=== PATIENT | male | born 1945 | race Caucasian/White ===

== ENCOUNTER 2017-09-13 12:35 | Emergency (ER) | payer MEDICARE, OTHER ==
[2017-09-13 13:00] LABS: Hematocrit 39.9 % (42.0-52.0); Hemoglobin 13.6 gm/dL (13.5-18.0); Mean Cell Volume 90.1 fl (78-100); Mean Corpuscular Hemoglobin 30.7 pg (27-31); Mean Corpuscular Hgb Conc 34.1 g/dl (32-36); Mean Platelet Volume 10.7 fl (6.0-9.5); Neutrophil # 4.8 K/mm3 (1.3-6.0); Neutrophil % 60.7 % (42-75.0); Platelet Count 216 K/mm3 (150-450); Red Blood Count 4.43 M/mm3 (4.7-6.0); Red Cell Distribution Width 12.5 % (11.5-14.0); White Blood Count 7.8 K/mm3 (4.0-10.5)
--- NOTE | 2017-09-13 13:09 | ERNOTE ---
Dyspnea - Date Date of Service: 09/13/17 - General Presenting Symptoms: shortness of breath Time Seen by Provider: 09/13/17 12:56 Source: patient Exam Limitations: no limitations - Immun/Allergies/Home Medications Immunizations: IMMUNIZATION HX Immunizations Up to Date Yes History of Influenza Vaccine Yes Hx Pneumococcal Vaccination Yes Allergies/Adverse Reactions: Allergies No Known Allergies Allergy (Verified 09/13/17 12:47) Home Medications: HOME MEDICATIONS Aspirin 325 mg PO DAILY 11/04/14 [Last Taken Unknown] Simvastatin [Zocor] 80 mg PO HS 11/04/14 [Last Taken Unknown] Albuterol Sulfate [Ventolin Hfa] 2 puff IH Q4H PRN #1 inhaler 09/13/17 [Last Taken Unknown] - History of Present Illness Narrative: Pt. comes in with c/o SOB when he goes out to check his mail every day for a week. Pt. denies any SOB at any other time of the day and states that the episodes last for about 5 minutes without any alleviating factors noted but it just resolves spontaneously. Pt. denies any cough, edema, fatigue, malaise, or aggravating factors at any other time throughout the day. Pt. 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 Severity: mild Treatment NETWORK ASSOCIATE: none Initiating event: Denies: upper resp illness, aspiration/choking, allergy to food, allergy to environment, allergy to unknown, exposure to smoke, exposure to mold, emotionally upset Frequency of episodes: Reports: no prior episodes Modifying Factors - (Improves): Reports: nothing Modifying Factors (Worsens): Reports: activity Associated Symptoms-Dyspnea: Denies: fever/chills, chest pain/discomfort, cough , wheezing, leg/calf pain, dizziness, lightheadedness, weakness, anxiety, tingling of hands/face, muscle spasms, loss of appetite Prior Treatment: Denies: recently seen, treated by physician, recently hospitalized, currently on antibiotics, previous episodes Review of Systems - Review of Systems Constitutional: Present: no symptoms reported. Absent: fever, chills, weakness , fatigue, malaise EYE: Present: no symptoms reported ENT: Present: no symptoms reported Respiratory: Present: shortness of breath. Absent: cough, wheezing Cardiology: Present: no symptoms reported. Absent: chest pain, palpitations, edema Gastrointestinal/Abdominal: Present: no symptoms reported. Absent: nausea, vomiting, diarrhea Genitourinary: Present: no symptoms reported. Absent: frequency, decreased urinary output Musculoskeletal: Present: no symptoms reported. Absent: back pain, neck pain, joint pain Skin: Present: no symptoms reported. Absent: rash, change in color Neurological: Present: no symptoms reported. Absent: headache, dizziness/light- headedness, weakness, numbness, tingling Endocrine: Present: no symptoms reported Hematologic/Lymphatic: Present: no symptoms reported Psych: Present: no symptoms reported All Other Systems: All systems neg except as marked - Patient's Past Medical History Patient History - Medical: No pertinent hx Patient History - Cardiac/Respiratory: CVA/Stroke, Hyperlipidemia Patient History - Cancer: No Hx of Cancer Patient History - Surgical Procedures: Vasectomy, Other Patient History - Other: None - Social History Living Situations: home Psych History: No pertinent hx Smoking Status: Former smoker Alcohol Use: rarely Drug Use: none - Immunizations Immunizations Up to Date: Yes Hx Pneumococcal Vaccination: Yes History of Influenza Vaccine: Yes Physical Exam - Physical Exam General Appearance: Present: wd/wn, alert, no apparent distress Head Exam: Present: normal inspection, no evidence of injury Eye Exam: Normal inspection: bilateral, PERRL: bilateral, EOMI: bilateral Ears, Nose, Throat: Present: normal ENT inspection, normal pharynx Neck: Present: normal inspection, nontender, supple, full range of motion. Absent: lymphadenopathy (R), lymphadenopathy (L) Respiratory: Present: no respiratory distress, normal breath sounds, no accessory muscle use, chest nontender, lungs clear Cardiovascular/Chest: Present: regular rate, rhythm, no murmur, normal peripheral pulses Gastrointestinal/Abdominal: Present: normal bowel sounds, nontender, nondistended, soft, no organomegaly Back Exam: Present: normal inspection, normal range of motion, no CVA tenderness , no vertebral tenderness Extremity Exam: Present: normal inspection, non-tender, normal range of motion, no edema Neurological Exam: Present: alert, oriented, normal mood/affect, no motor/ sensory deficits, 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 Absent: pallor, skin rash ED Progress - Vital Signs Patient's Vital Signs:: I have reviewed the patient's vital signs. Vital Signs: Vital Signs 09/13/17 09/13/17 12:40 13:02 Temperature 36.7 C Pulse Rate 75 64 Respiratory 15 12 Rate Blood Pressure 138/77 134/60 O2 Sat by Pulse 98 96 Oximetry - EKG EKG: other - Sinus rythm with inferior ST wave abnormality no acute change from previous EKG read: Interp. by me - X-Ray X-Ray #1 X-Ray: chest Interpretation: Reviewed by me X-ray Comments: no consolidation, mild hyperinflation, no pulm edema. - Progress/Reassessment Chief Complaint: Dyspnea Departure Clinical Impression: COPD (chronic obstructive pulmonary disease) Qualifiers: COPD type: emphysema Emphysema type: unspecified Qualified Code(s): J43.9 - Emphysema, unspecified - Departure Disposition: Home self-care Condition: Good Instructions: Chronic Obstructive Pulmonary Disease Exacerbation, [id number] Additional Instructions: Please take albuterol inhaler 2 puffs when you wake up prior to letting dogs out and follow up with your primary provider in 2-3 days if no improvement. Referrals: Kiley Smith MD [Primary Care Provider] - Prescriptions: Albuterol Sulfate [Ventolin Hfa] 2 puff IH Q4H PRN #1 inhaler PRN Reason: Shortness Of Breath
[2017-09-13 13:25] LABS: Urine Bilirubin Negative (NEGATIVE); Urine Blood Negative /ul (NEGATIVE); Urine Ketone Negative (NEGATIVE); Urine Nitrite Negative (NEGATIVE); Urine Protein Negative (NEGATIVE); Urine Urobilinogen Normal (NORMAL); Urine pH 5.5 pH (5.0-7.0)
[2017-09-13 13:25] LABS: Albumin * 3.9 gm/dl (3.4-5.0); Anion Gap 14.5 mmol/L (6.8-13.8); BUN/Creatinine Ratio 19.4 (9.0-21.6); Bilirubin, Total 0.6 mg/dL (0.0-1.1); Calcium * 9.2 mg/dL (7.9-10.9); Carbon Dioxide 24.1 mmol/L (24-32.6); Potassium 4.6 mmol/L (3.4-4.6); Total Protein 7.5 gm/dL (6.2-8.2); Troponin I 0.088 ng/ml (0.00-0.10)
[2017-09-13 13:36] LABS: Urine Appearance Clear; Urine Bacteria None Seen; Urine Color Yellow; Urine RBC None Seen /hpf (0-5); Urine WBC TRACE /hpf (0-5)
[2017-09-13 13:43] VITALS: BP 143/72
== END 2017-09-13 13:55 | disposition home or self-care (01) ==
LOC: ER 12:35
DX: J43.9 Emphysema, unspecified (principal); E78.5 Hyperlipidemia, unspecified; Z86.73 Personal history of transient ischemic attack (TIA), and cerebral infarction without residual deficits

== ENCOUNTER 2017-09-27 11:53 | Emergency (ER) | payer MEDICARE, OTHER ==
[2017-09-27] MEDS ORDERED: ASPIRIN 81 MG TAB.CHEW PO ONE (12:41)
[2017-09-27] MEDS ORDERED: ASPIRIN 81 MG TAB.CHEW ONE (12:49)
--- NOTE | 2017-09-27 12:49 | ERNOTE ---
Medical Problem HPI - Narrative Date of Service: 09/27/17 - General Chief Complaint: Dyspnea Time Seen by Provider: 09/27/17 12:28 Source: patient, family Exam Limitations: no limitations - Immun/Allergies/Home Medications Immunizations: IMMUNIZATION HX Immunizations Up to Date No History of Influenza Vaccine Yes Hx Pneumococcal Vaccination Yes Allergies/Adverse Reactions: Allergies No Known Allergies Allergy (Verified 09/13/17 12:47) Home Medications: HOME MEDICATIONS Aspirin 325 mg PO DAILY 11/04/14 [Last Taken Unknown] Simvastatin [Zocor] 80 mg PO HS 11/04/14 [Last Taken Unknown] Albuterol Sulfate [Ventolin Hfa] 2 puff IH Q4H PRN #1 inhaler 09/13/17 [Last Taken Unknown] - History of Present History Narrative: Pt. comes in with c/o a not right feeling in his chest. Pt. sats that he has some shortness of breath and chest heaviness upon awakening and it resolves around noon every day. Pt. denies any Chest pain, NVD, fever, sore throat, rhinorrhea, abdominal pain, alleviating or aggravating factor. Pt. states that he has been taking his inhaler every morning without relief. Pt. was seen here 2 weeks ago and was found to have COPD and was started on said inhaler for this. Timing: intermittent Severity: moderate Modifying Factors - (Improves): Present: other - denies Modifying Factors - (Worsens): Present: other - denies Review of Systems - Review of Systems Constitutional: Present: no symptoms reported. Absent: fever, chills, weakness , fatigue, malaise EYE: Present: no symptoms reported. Absent: eye pain, double vision, vision changes ENT: Present: no symptoms reported. Absent: ear pain, ear discharge, nose pain , nose congestion, nasal drainage, sore throat, throat swelling Respiratory: Present: shortness of breath - resolved now, cough, orthopnea. Absent: wheezing, stridor Cardiology: Present: no symptoms reported. Absent: chest pain, palpitations, edema Gastrointestinal/Abdominal: Present: no symptoms reported. Absent: nausea, vomiting, diarrhea, abdominal pain Genitourinary: Present: no symptoms reported. Absent: frequency, decreased urinary output Musculoskeletal: Present: no symptoms reported. Absent: back pain, neck pain, joint pain Skin: Present: no symptoms reported. Absent: rash, change in hair/nails Neurological: Present: no symptoms reported. Absent: headache, dizziness/light- headedness, numbness, tingling Endocrine: Present: no symptoms reported Hematologic/Lymphatic: Present: no symptoms reported Psych: Present: no symptoms reported All Other Systems: All systems neg except as marked - Patient's Past Medical History Patient History - Medical: No pertinent hx Patient History - Cardiac/Respiratory: CVA/Stroke, Hyperlipidemia Patient History - Cancer: No Hx of Cancer Patient History - Surgical Procedures: Vasectomy, Other Patient History - Other: None - Social History Living Situations: home Abuse History: No History of abuse Psych History: No pertinent hx Smoking Status: Former smoker Have you smoked in the past 12 months: Yes Do you dip or chew tobacco: No Alcohol Use: none Drug Use: none - Immunizations Immunizations Up to Date: No Hx Pneumococcal Vaccination: Yes History of Influenza Vaccine: Yes Physical Exam - Physical Exam General Appearance: Present: wd/wn, alert, no apparent distress Head Exam: Present: normal inspection, no evidence of injury, no tenderness w palpation Eye Exam: Normal inspection: bilateral Ears, Nose, Throat: Present: normal ENT inspection, normal pharynx. Absent: abnormal TM (R), abnormal TM (L), nasal congestion, pharyngeal erythema, pharyngeal swelling Neck: Present: normal inspection, nontender, supple, full range of motion. Absent: lymphadenopathy (R), lymphadenopathy (L) Respiratory: Present: no respiratory distress, normal breath sounds, no accessory muscle use, chest nontender, lungs clear. Absent: decreased breath sounds, crackles, rales, rhonchi, wheezing Cardiovascular/Chest: Present: regular rate, rhythm, no murmur, normal peripheral pulses Gastrointestinal/Abdominal: Present: normal bowel sounds, nontender, nondistended, soft, no organomegaly. 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 Absent: pallor, skin rash ED Progress - Date and Time Seen: Date and Time: 02/05/18 13:[address] Hensley and as pt. is having a NSTEMI he recommends having a heparin gtt and accepts pt. for transferred. - Results and Orders Patient's Lab Results:: I have reviewed the patient's lab results. Results and Orders: Abnormal Lab Results 09/27/17 09/27/17 Range/Units 12:50 12:50 RBC 4.20 L (4.7-6.0) M/mm3 Hgb 12.9 L (13.5-18.0) gm/dL Hct 38.5 L (42.0-52.0) % MPV 11.0 H (6.0-9.5) fl Lymphocytes % 14.0 L (20-51) % Neutrophils # 6.4 H (1.3-6.0) K/mm3 Lymphocytes # 1.2 L (1.5-3.5) k/mm3 Anion Gap 14.3 H (6.8-13.8) mmol/L AST 52 H (0-48) U/L Troponin I 3.013 H* (0.00-0.10) ng/ml B-Natriuretic Peptide 1009 H (5-350) pg/mL - Vital Signs Patient's Vital Signs:: I have reviewed the patient's vital signs. Vital Signs: Vital Signs 09/27/17 09/27/17 12:13 12:25 Temperature 36.6 C 36.6 C Pulse Rate 75 75 Respiratory 18 18 Rate Blood Pressure 115/58 115/58 O2 Sat by Pulse 98 98 Oximetry - EKG EKG: ST depression EKG read: Reviewed by me - ST depression with reciprocal changes in lateral leads. - Progress/Reassessment Chief Complaint: Dyspnea Progress:: Unchanged Departure Clinical Impression: NSTEMI (non-ST elevated myocardial infarction) - Departure Disposition: [facility] Condition: Serious Referrals: Kiley Smith MD [Primary Care Provider] -
[2017-09-27 12:56] LABS: Hematocrit 38.5 % (42.0-52.0); Hemoglobin 12.9 gm/dL (13.5-18.0); Mean Cell Volume 91.7 fl (78-100); Mean Corpuscular Hemoglobin 30.7 pg (27-31); Mean Corpuscular Hgb Conc 33.5 g/dl (32-36); Neutrophil # 6.4 K/mm3 (1.3-6.0); Neutrophil % 74.2 % (42-75.0); Platelet Count 189 K/mm3 (150-450); Red Cell Distribution Width 13.1 % (11.5-14.0); White Blood Count 8.6 K/mm3 (4.0-10.5)
[2017-09-27 13:16] LABS: Albumin * 3.7 gm/dl (3.4-5.0); Anion Gap 14.3 mmol/L (6.8-13.8); BUN/Creatinine Ratio 21.6 (9.0-21.6); Bilirubin, Total 0.4 mg/dL (0.0-1.1); Ca. Corrected For Albumin 8.9 mg/dL (8.4-10.2); Carbon Dioxide 25.3 mmol/L (24-32.6); Potassium 4.6 mmol/L (3.4-4.6); Total Protein 7.1 gm/dL (6.2-8.2)
[2017-09-27 13:19] LABS: Troponin I 3.013 ng/ml (0.00-0.10)
[2017-09-27] MEDS ORDERED: HEPARIN SODIUM,PORCINE 5,000 UNITS/ML VIAL IV ONE (13:32)
[2017-09-27] MEDS ORDERED: HEPARIN SODIUM,PORCINE/D5W 25,000 UNITS/500 ML BAG IV PRN (13:32)
[2017-09-27] MEDS ORDERED: HEPARIN SODIUM,PORCINE/D5W 25,000 UNITS/500 ML BAG IV ONE (13:35)
[2017-09-27] MEDS ORDERED: HEPARIN SODIUM,PORCINE 5,000 UNITS/ML VIAL ONE (13:40)
[2017-09-27 13:50] VITALS: BP 122/73
[2017-09-27 13:50] LABS: Prothrombin Time (Patient) 10.6 Seconds (9.0-11.0)
[2017-09-27 13:53] LABS: INR 1.06 INR (0.90-1.10); Partial Thrombolplastin Time 26.2 Seconds (24-32)
== END 2017-09-27 14:00 | disposition short-term general hospital (02) ==
LOC: ER 11:53
DX: I21.4 Non-ST elevation (NSTEMI) myocardial infarction (principal); Z87.891 Personal history of nicotine dependence